=== PATIENT | female | born 1950 ===

== ENCOUNTER 2021-09-21 10:30 | Inpatient (IN) | payer OTHER ==
[~2021-09-21] VITALS: Ht 157.5 cm; Wt 55.3 kg
[2021-09-21] MEDS ORDERED: NEURONTIN800 MG (12:16)
[2021-09-21] MEDS ORDERED: ULTRAM50 MG (12:17)
[2021-09-21] MEDS ORDERED: ATORVASTATIN CA40 MG PO (12:18)
[2021-09-21] MEDS ORDERED: COZAAR100 MG PO (12:18)
[2021-09-24] MEDS ORDERED: COLACE100 MG PO (07:25)
[2021-09-24] MEDS ORDERED: PERCOCET 5-3251 EACH PO (07:27)
[2021-09-24] MEDS ORDERED: NEURONTIN800 MG PO (07:27)
[2021-09-24] MEDS ORDERED: AMOX-CLAV 875-1 EACH PO (07:27)
[2021-09-24] MEDS ORDERED: MEDROLPACK PO (07:27)
== END 2021-09-25 12:54 | disposition home health service (06) | DRG 520 ==
LOC: EDSTATUS 10:30 → ADM 10:30 → O/R 09-24 04:46 → PED 09-24 04:46 → SURH 09-24 10:30 → PED 09-24 13:35 → SURH 09-24 17:45 → PED 09-25 12:54
PROVIDERS: ADMIT Orthopaedic Surgery Orthopaedic Surgery of the Spine; ATTEND Orthopaedic Surgery Orthopaedic Surgery of the Spine
PROC: 0SB20ZZ Excision of Lumbar Vertebral Disc, Open Approach (ICD-10-PCS; principal; 2021-09-24 17:45)
DX: M48.062 Spinal stenosis, lumbar region with neurogenic claudication (principal); E03.8 Other specified hypothyroidism; E11.9 Type 2 diabetes mellitus without complications; Z79.4 Long term (current) use of insulin